=== PATIENT | female | born 1955 | race Caucasian/White ===

== ENCOUNTER 2020-04-02 12:35 | Outpatient (CLI) | payer BC | END 2020-04-02 12:36 | disposition home or self-care (01) | LOC: LAB 12:35 | PROVIDERS: ATTEND Ophthalmology | DX: H25.812 Combined forms of age-related cataract, left eye (principal); Z01.812 Encounter for preprocedural laboratory examination; Z20.828 Contact with and (suspected) exposure to other viral communicable diseases ==

== ENCOUNTER 2021-07-17 15:52 | Emergency (ER) | payer BC, OTHER ==
[2021-07-17] MEDS ORDERED: CHERRY SYRUP 10 ML UDC PO ONE (16:37)
[2021-07-17] MEDS ORDERED: DEXAMETHASONE 10 MG/ML VIAL PO STA (16:37)
--- NOTE | 2021-07-17 16:41 | ED Physician Documentation ---
PD HPI HEENT - Stated complaint Stated Complaint: THROAT PX - Chief complaint Chief Complaint: Heent - History obtained from History obtained from: Patient - History of Present Illness Timing - onset: Last night Timing - duration: Hours Timing - details: Abrupt onset, Still present Location: Throat Improves: Other (olive oil) Worsens: Swalllowing Associated symptoms: Congestion. No: Fever, Rhinorrhea, Trismus, Swollen nodes, Facial swelling, Cough Similar symptoms before: No diagnosis Recently seen: Not recently seen - Additional information Additional information: 65-year-old female reports that yesterday she had a mandrin orange and she swallowed a piece that was stuck together and she feels that it has been stuck in her throat since. She is able to breathe that she is able to swallow she has pain when she swallows on the right side of her throat. After examination she is questioned further about episodes of feeling foreign body in her throat and she does admit that anytime she takes a vitamin the goes down sideways she will have a sensation similar to this before some period of time she really feels like there is an orange stuck there today. She has had tonsillitis a number of times when she was a child. Review of Systems Constitutional: denies: Fever, Chills Eyes: denies: Decreased vision Ears: denies: Ear pain Nose: reports: Congestion. denies: Rhinorrhea / runny nose Throat: reports: Sore throat Cardiac: denies: Chest pain / pressure, Palpitations Respiratory: denies: Dyspnea, Cough GI: denies: Abdominal Pain, Nausea, Vomiting : denies: Dysuria, Frequency PD PAST MEDICAL HISTORY - Past Medical History Cardiovascular: High cholesterol Respiratory: None Endocrine/Autoimmune: None GI: None : None HEENT: Chronic vision loss, Other Psych: Depression Musculoskeletal: None Derm: Other - Past Surgical History Derm: Skin cancer surgery - Present Medications Home Medications: Ambulatory Orders Medication Instructions Recorded Confirmed Amoxicillin/Potassium Clav 500 mg PO TID #300 ml 07/17/21 [Augmentin 250-62.5 mg/5 ml] - Allergies Allergies/Adverse Reactions: Allergies Allergy/AdvReac Type Severity Reaction Status Date / Time hydrocodone [From Vicodin] Allergy Itching Verified 07/17/21 15:55 PD ED PE NORMAL - Vitals Vital signs reviewed: Yes (Hypertensive) - General General: Alert and oriented X 3, No acute distress, Well developed/nourished - HEENT HEENT: Atraumatic, PERRL, EOMI, Ears normal, Other (The pharynx is with 2+ tonsil on the right 1+ on the left there is crypts with exudate on the right and crypts on the left.) - Neck Neck: Supple, no meningeal sign, No bony TTP - Cardiac Cardiac: RRR, No murmur - Respiratory Respiratory: No respiratory distress, Clear bilaterally - Abdomen Abdomen: Soft, Non tender - Back Back: No CVA TTP, No spinal TTP - Derm Derm: Normal color, Warm and dry, No rash - Extremities Extremities: No deformity, No edema - Neuro Neuro: Alert and oriented X 3, java consultant 2-12 intact, No motor deficit, No sensory deficit, Normal speech Eye Opening: Spontaneous Motor: Obeys Commands Verbal: Oriented GCS Score: 15 - Psych Psych: Normal mood, Normal affect Results - Vitals Vitals: Vital Signs - 24 hr 07/17/21 15:55 Temperature 36.5 C Heart Rate 93 Respiratory 16 Rate Blood Pressure 160/90 H O2 Saturation 98 Oxygen O2 Source Room air PD MEDICAL DECISION MAKING - ED course Complexity details: reviewed results, re-evaluated patient, considered differential, d/w patient ED course: 65-year-old female with a foreign body sensation in her throat has asymmetric tonsillar swelling she does have crypts and exudate consistent with simple tonsillitis but I have indicated to the patient that she will need to follow-up with ear nose and throat as she has asymmetric swelling of her tonsils and evaluation for tonsil cancer is indicated. Today here in the emergency department she is treated with dexamethasone which will help with this and we will place her onto an antibiotic as well. I have given her follow-up with [facility]. Departure - Departure Disposition: Home, Self Care Clinical Impression: Tonsillitis with exudate Condition: Stable Instructions: ED Tonsillitis Follow-Up: [facility] [Provider Group] Prescriptions: Amoxicillin/Potassium Clav [Augmentin 250-62.5 mg/5 ml] 500 mg PO TID #300 ml Comments: Dorinda, today your right tonsil looks swollen and is larger than the left t onsil. This is a reason to follow-up with ear nose and throat for evaluation. To rule out tonsil cancer. I suspect that the treatment we give you today will help, and you may be symptom-free for some time. Follow-up with the ear nose and throat doctor.
[2021-07-17] MEDS ORDERED: AMOX/CLAV 200 MG/28.5 MG/5 ML SYRINGE PO STA (16:50)
[2021-07-17 17:10] VITALS: BP 150/85
--- NOTE | 2021-07-18 14:44 | ED Physician Documentation ---
ED Addendum - Addendum Addendum: 07/18/21 14:44 Patient request Augmentin tablets be called to the [facility] pharmacy. This was E prescribed. Departure - Departure Disposition: 01 Home, Self Care Clinical Impression: Tonsillitis with exudate Condition: Stable Instructions: ED Tonsillitis Follow-Up: [facility] [Provider Group] Prescriptions: Amox/Clav 875/125 [Augmentin] 1 tab PO Q12H #20 tablet Comments: Dorinda, today your right tonsil looks swollen and is larger than the left tonsil. This is a reason to follow-up with ear nose and throat for evaluation. To rule out tonsil cancer. I suspect that the treatment we give you today will help, and you may be symptom-free for some time. Follow-up with the ear nose and throat doctor. Discharge Date/Time: 07/17/21 17:10
== END 2021-07-17 17:10 | disposition home or self-care (01) ==
LOC: ED 15:52
DX: J03.90 Acute tonsillitis, unspecified (principal)
CPT/HCPCS: 99282; 99283; A9270

== ENCOUNTER 2022-07-12 11:51 | Emergency (ER) | payer SELFPAY ==
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
[2022-07-12 16:04] VITALS: BP 154/76
== END 2022-07-12 16:03 | disposition home or self-care (01) ==
LOC: ED 11:51
DX: L25.3 Unspecified contact dermatitis due to other chemical products (principal)
CPT/HCPCS: 99282